=== PATIENT | male | born 1980 | race Asian ===

== ENCOUNTER 2020-09-17 00:41 | Emergency (ER) | payer OTHER ==
[~2020-09-17] VITALS: Ht 172.7 cm; Wt 88.5 kg
[2020-09-17 00:47] VITALS: BP 161/98
--- NOTE | 2020-09-17 00:47 | PHYS DOC ---
General Adult HPI: HPI: Patient is a 40 year old male who presents with left middle finger laceration, patient was working on his shed yesterday,a door fell and grazed his left middle finger cutting him. Patient needs a tetanus shot. (FRANTZ PICKETT APRN) Review of Systems: Review of Systems: Constitutional: Denies fever or chills. [] Musculoskeletal: Denies back pain or joint pain. [] Integument: Reports left middle finger laceration Neurologic: Denies headache, focal weakness or sensory changes. [] Psychiatric: Denies depression or anxiety. [] (FRANTZ PICKETT APRN) Heart Score: C/O Chest Pain: N/A Risk Factors: Risk Factors: DM, Current or recent (<one month) smoker, HTN, HLP, family history of CAD, obesity. Risk Scores: Score 0 - 3: 2.5% MACE over next 6 weeks - Discharge Home Score 4 - 6: 20.3% MACE over next 6 weeks - Admit for Clinical Observation Score 7 - 10: 72.7% MACE over next 6 weeks - Early Invasive Strategies (FRANTZ PICKETT APRN) Physical Exam: PE: Constitutional: Well developed, well nourished, no acute distress, non-toxic appearance. [] Skin: Left middle finger with a superficial laceration on the distal end of the finger. There is no tendon involvement. Full range of motion to make fingers on the left hand. Adequate radial, medial, ulnar sensation to the left fingers. +2 left radial pulse. Cap refill less than 2 seconds to left fingers. Back: No tenderness, no CVA tenderness. [] Extremities: No tenderness, no cyanosis, no clubbing, ROM intact, no edema. [] Neurologic: Alert and oriented X 3, normal motor function, normal sensory function, no focal deficits noted. [] Psychologic: Affect normal, judgement normal, mood normal. [] (FRANTZ PICKETT APRN) EKG: EKG: [] (FRANTZ PICKETT APRN) Radiology/Procedures: Radiology/Procedures: [] (FRANTZ PICKETT APRN) Course & Med Decision Making: Course & Med Decision Making Pertinent Labs and Imaging studies reviewed. (See chart for details) This a 40-year-old male patient presented to the ED today requesting tetanus shot for laceration on the left middle finger he sustained yesterday. Tetanus was administered. Wound care instructions provided. Discharged home (FRANTZ PICKETT APRN) Course & Med Decision Making Chart reviewed. Plan of care and treatment plan provided independently by MLP. I was available for consult. (MARYCRUZ CHAVEZ DO) Kimani Disclaimer: Dragon Disclaimer: This electronic medical record was generated, in whole or in part, using a voice recognition dictation system. (FRANTZ PICKETT APRN) Departure Departure Impression: Primary Impression: Laceration of finger of left hand Qualified Codes: S61.213A - Laceration without foreign body of left middle finger without damage to nail, initial encounter Additional Impression: Tetanus toxoid inoculation Disposition: HOME / SELF CARE / HOMELESS Condition: STABLE Patient Instructions: Laceration Care, Adult, [id number] Additional Instructions: You received a tetanus shot today. Keep the laceration clean and dry. Apply Neosporin to the laceration site. Monitor for any signs of infection and return to the ED if they occur. You received a tetanus shot today FRANTZ PICKETT APRN Sep 17, 2020 00:47 MARYCRUZ CHAVEZ DO Sep 17, 2020 20:32
[2020-09-17] MEDS ORDERED: DIPH,PERTUSS(ACELL),TET VAC/PF 0.5 ML SYRINGE. VAX IM ONE (01:00)
== END 2020-09-17 00:57 | disposition home or self-care (01) ==
LOC: ER 00:41
DX: S61.213A Laceration without foreign body of left middle finger without damage to nail, initial encounter (principal); W20.8XXA Other cause of strike by thrown, projected or falling object, initial encounter; Y93.89 Activity, other specified; Y92.89 Other specified places as the place of occurrence of the external cause; Y99.8 Other external cause status
CPT/HCPCS: 90471; 90715; 99283-25